=== PATIENT | male | born 1950 | race Caucasian/White ===

== ENCOUNTER 2020-12-06 12:03 | Emergency (ER) | payer MEDICARE, OTHER ==
[~2020-12-06] VITALS: Ht 172.7 cm; Wt 77.1 kg
[2020-12-06] MEDS ORDERED: TAMS-3 PO ×2 (12:15→13:11)
--- NOTE | 2020-12-06 12:15 | NUR ---
Dr Roca at the bedside for MSE.
[2020-12-06 12:29] LABS: BASOPHILS % (AUTO) 0.3 % (0.0-2.0); EOSINOPHILS # (AUTO) 0.1 K/uL (0.0-0.7); EOSINOPHILS % (AUTO) 0.4 % (0.0-7.0); HEMATOCRIT 45.9 % (36.7-47.1); HEMOGLOBIN 15.3 g/dL (12.5-16.3); LYMPHOCYTES % (AUTO) 7.3 % (20.5-51.5); MEAN CORPUSCULAR HEMOGLOBIN 30.9 uug (23.8-33.4); MEAN CORPUSCULAR HGB CONC 33 g/dL (32.5-36.3); MEAN CORPUSCULAR VOLUME 92.5 fL (73.0-96.2); MONOCYTES # (AUTO) 0.9 K/uL (2.0-10.0); MONOCYTES % (AUTO) 6.4 % (0.0-11.0); NEUTROPHILS # (AUTO) 11.3 K/uL (1.8-8.9); NEUTROPHILS % (AUTO) 85.6 % (38.5-71.5); PLATELET COUNT (AUTO) 195 K/uL (152-348); RED BLOOD CELL COUNT(AUTO) 4.96 MIL/uL (4.06-5.63); WHITE BLOOD COUNT (AUTO) 13.3 K/uL (3.6-10.2)
[2020-12-06] MEDS ORDERED: levoFLOXacin 750 MG TABLET PO ONE (12:45)
[2020-12-06 12:49] LABS: *BILIRUBIN,URIN NEGATIVE (NEGATIVE); *BLOOD, URINE 2+ (NEGATIVE); *CLARITY,URINE SLIGHTLY CLOUDY (CLEAR); *COLOR,URINE YELLOW (YELLOW); *KETONES,URINE NEGATIVE (NEGATIVE); *UROBILINOGEN,URINE 0.2 E.U./dl (NORMAL); LEUKOCYTE ESTERASE ,URINE NEGATIVE (NEGATIVE); NITRITE, URINE NEGATIVE (NEGATIVE); PH,URINE 6.5 (5.0-8.0); UGLUCOSE NEGATIVE (NEGATIVE)
[2020-12-06 12:51] LABS: CREATININE 1.1 mg/dL (0.6-1.3); POTASSIUM 4.1 mmol/L (3.5-5.1)
[2020-12-06] MEDS ORDERED: levoFLOXacin 750 MG TABLET ONE (12:56)
[2020-12-06 12:58] LABS: BILIRUBIN,DIRECT 0.2 mg/dL (0.0-0.2); BILIRUBIN,TOTAL 0.6 mg/dL (0.2-1.0); TOTAL PROTEIN, SERUM 7.3 g/dL (6.4-8.2)
[2020-12-06] MEDS ORDERED: LEVO750T46 PO (13:11)
[2020-12-06 13:13] VITALS: BP 145/87
[2020-12-06 13:20] LABS: SQUAMOUS EPITHELIAL CELL,UR NONE SEEN /HPF (NONE SEEN)
[2020-12-06 13:21] LABS: BACTERIA,URINE NONE SEEN /HPF (NONE SEEN); MUCUS,URINE NONE SEEN /LPF (0-FEW); WBC,URINE NONE SEEN /HPF (0-3)
== END 2020-12-06 13:29 | disposition home or self-care (01) ==
LOC: ER 12:03 → EDBD 12:03 → ER 13:29
DX: N40.1 Benign prostatic hyperplasia with lower urinary tract symptoms (principal); R33.8 Other retention of urine; R39.11 Hesitancy of micturition; Z79.899 Other long term (current) drug therapy
CPT/HCPCS: 36415; 51702; 85025; 87086; A4663

== ENCOUNTER 2020-12-12 11:05 | Emergency (ER) | payer MEDICARE, OTHER ==
[~2020-12-12] VITALS: Ht 177.8 cm; Wt 86.2 kg
[~2020-12-12 11:05] MED LIST: LEVO750T46 PO; TAMS-3 PO
--- NOTE | 2020-12-12 11:12 | NUR ---
Patient noted screaming and running into ER stating he could not urinate and has not urinated since "last night", verbal order to place a martins catheter via coude 16 portuguese, urine noted flowing in catheter bag, patient states relief
--- NOTE | 2020-12-12 11:13 | NUR ---
at bedside for assessment
[2020-12-12 11:31] LABS: *BILIRUBIN,URIN NEGATIVE (NEGATIVE); *CLARITY,URINE CLEAR (CLEAR); *COLOR,URINE YELLOW (YELLOW); *KETONES,URINE NEGATIVE (NEGATIVE); *UROBILINOGEN,URINE 0.2 E.U./dl (NORMAL); LEUKOCYTE ESTERASE ,URINE NEGATIVE (NEGATIVE); NITRITE, URINE NEGATIVE (NEGATIVE); UGLUCOSE NEGATIVE (NEGATIVE)
[2020-12-12 11:38] LABS: *BLOOD, URINE TRACE (NEGATIVE)
[2020-12-12 11:50] LABS: BASOPHILS % (AUTO) 0.6 % (0.0-2.0); EOSINOPHILS # (AUTO) 0.2 K/uL (0.0-0.7); EOSINOPHILS % (AUTO) 2.6 % (0.0-7.0); HEMATOCRIT 41.6 % (36.7-47.1); HEMOGLOBIN 13.9 g/dL (12.5-16.3); LYMPHOCYTES % (AUTO) 14.7 % (20.5-51.5); MEAN CORPUSCULAR HEMOGLOBIN 30.8 uug (23.8-33.4); MEAN CORPUSCULAR HGB CONC 34 g/dL (32.5-36.3); MEAN CORPUSCULAR VOLUME 91.8 fL (73.0-96.2); MONOCYTES # (AUTO) 0.5 K/uL (2.0-10.0); MONOCYTES % (AUTO) 7.9 % (0.0-11.0); NEUTROPHILS % (AUTO) 74.2 % (38.5-71.5); PLATELET COUNT (AUTO) 196 K/uL (152-348); RED BLOOD CELL COUNT(AUTO) 4.53 MIL/uL (4.06-5.63); WHITE BLOOD COUNT (AUTO) 6.7 K/uL (3.6-10.2)
[2020-12-12 11:52] LABS: CREATININE 0.9 mg/dL (0.6-1.3); POTASSIUM 3.6 mmol/L (3.5-5.1)
[2020-12-12] MEDS ORDERED: NITR100C11 PO (12:08)
[2020-12-12 12:09] LABS: BILIRUBIN,DIRECT 0.2 mg/dL (0.0-0.2); BILIRUBIN,TOTAL 0.7 mg/dL (0.2-1.0); TOTAL PROTEIN, SERUM 6.4 g/dL (6.4-8.2)
--- NOTE | 2020-12-12 12:18 | NUR ---
urinary bag exchanged for urinary leg bag, instructed to follow up with
--- NOTE | 2020-12-12 12:30 | NUR ---
Patient discharged to home in stable condition. Written and verbal after care instructions given. Patient verbalizes understanding of instructions. Stressed follow up or return to ER for worsening s/s.
[2020-12-12 12:31] VITALS: BP 136/85
[2020-12-12 15:09] LABS: BACTERIA,URINE NONE SEEN /HPF (NONE SEEN); SQUAMOUS EPITHELIAL CELL,UR NONE SEEN /HPF (NONE SEEN); WBC,URINE 0-3 /HPF (0-3)
== END 2020-12-12 12:32 | disposition home or self-care (01) ==
LOC: ER 11:06
DX: N40.1 Benign prostatic hyperplasia with lower urinary tract symptoms (principal); R33.8 Other retention of urine; R03.0 Elevated blood-pressure reading, without diagnosis of hypertension
CPT/HCPCS: 36415; 51702; 85025; 87086; A4663

== ENCOUNTER 2020-12-14 10:53 | Emergency (ER) | payer MEDICARE, OTHER ==
[~2020-12-14] VITALS: Ht 177.8 cm; Wt 86.2 kg
[~2020-12-14 10:53] MED LIST changes: +NITR100C11 PO
--- NOTE | 2020-12-14 11:37 | NUR ---
Patient discharged to home in stable condition with brisk steady gait. 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 Patient verbalized understanding & comapliance of instructions. Stressed follow up with his primary doctor and urologist or return to ER for worsening s/s.
== END 2020-12-14 11:38 | disposition home or self-care (01) ==
LOC: ER 10:53
DX: N40.1 Benign prostatic hyperplasia with lower urinary tract symptoms (principal); R33.8 Other retention of urine; D72.829 Elevated white blood cell count, unspecified
CPT/HCPCS: 51702; A4663